=== PATIENT | female | born 1995 ===

== ENCOUNTER 2023-03-03 13:26 | Emergency (ER) | payer BC, SELFPAY ==
[2023-03-03 13:34] VITALS: BP 135/74; PULSE 88; RESP 18; TEMP 35.9; O2SAT 100; BMI 41.0
--- NOTE | 2023-03-03 14:56 | ED.DENTAL ---
HPI - Dental/Oral General Time Seen by Provider: 14:56 Date Seen: 03/03/23 Chief complaint: Dental/Oral/Mouth Injury/Pain Stated complaint: Tooth Pain Time Seen by Provider: 03/03/23 14:56 Source: patient and RN notes reviewed Mode of arrival: ambulatory Limitations: no limitations History of Present Illness HPI Narrative: Afua is a very pleasant 27-year-old female with recent dental evaluation who comes to the emergency room with increasing dental pain. Patient was noted to undergo dental work on MondayFebruary 28. She thinks she had 3 separate feelings. She notes that she has had increasing pain since that time especially along the left jaw edge and on both the upper and lower aspect of her teeth. She has not had fevers or chills but has been unable to sleep and this has resulted in almost delirious type state she states. She notes that she even has pain coming from the bottom part of her ear. She has not had any swelling of her face and she has not noticed any purulent drainage. She has not had a fever. She was supposed to follow up with the dental clinic today but they called to tell her that the dentist she was supposed to see was not available. She admits that she got very mad and was swearing at them and since that time they have not answered any of her phone calls. She has not had a recent cough cold or congestion. Teeth map: 1. 2. 3. Related Data Allergies Allergy/AdvReac Type Severity Reaction Status Date / Time amoxicillin Allergy Verified 03/03/23 13:33 Review of Systems Status of ROS: Reports: 6 or more systems reviewed and unremarkable except as noted in History and below Const: Reports: fatigue; Denies: fever or chills Eyes: Denies: change in vision ENMT: Reports: mouth pain; Denies: throat pain, neck pain, throat swelling, difficulty swallowing, ear pain or ear discharge Cardio: Denies: shortness of breath with exertion Resp: Denies: shortness of breath or cough GI: Denies: difficulty swallowing Musculo: Denies: neck pain Endo: Reports: fatigue Allergy/Immuno: Denies: throat swelling PFSH PFSH Social History Smoking Status: Current every day smoker What tobacco products do you use: cigarettes Smoking packs per day: 0.5 Smoking cigarettes per day: 10.0 Years smoked: 10 Smoking pack-years: 5.00 Do you use any of these nicotine containing products: None Second hand tobacco smoke exposure: No How often do you have a drink containing alcohol: monthly or less How many standard drinks containing alcohol do you have on a typical day: 1 or 2 How often do you have six or more drinks on one occasion: Never AUDIT-C Alcohol total score: 1 Non-prescribed substance use: denies use service: No Exam Narrative: Exam Narrative: Patient is alert and oriented. She is very talkative and nontoxic in appearance. Face is symmetrical without evidence of swelling. Left TM is bulging and erythematous. Ear canal itself appears to be within normal limits and there is no pain with external manipulation of the ear. Right TM is within normal limits. Rather challenging to see given the amount of cerumen noted. Patient has no evidence of gum swelling. She did have pain with percussion over the left upper eye tooth as well as bottom molars that are marked on previous Page. Mild erythema of the gum line on the lower jaw. Heart with regular rate and rhythm and lungs are clear. Const: Vital Signs, click to edit/add: Vital Signs - 24 hr 03/03/23 13:34 Temperature 96.7 F L Pulse Rate [Pulse Oximeter] 88 Respiratory Rate 18 Blood Pressure [Ri ght Upper Arm] 135/74 Pulse Oximetry 100 Oxygen Delivery Me thod Room Air Documenting provider has reviewed patient's vital signs: yes Course Course Hospital Course: At this time patient has a clear left otitis media but also has dental pain. I honestly think it most of her pain comes from her ear but cannot rule out underlying dental infection given recent instrumentation. Vital Signs Vital signs: Initial Vital Signs Temperature 96.7 F L 03/03/23 13:34 Temperature Source Temporal Artery Scan 03/03/23 13:34 Pulse Rate 88 03/03/23 13:34 Pulse Rhythm Regular 03/03/23 13:34 Respiratory Rate 18 03/03/23 13:34 Blood Pressure 135/74 03/03/23 13:34 Blood Pressure Mean 94 03/03/23 13:34 Blood Pressure Position Sitting 03/03/23 13:34 Pulse Oximetry 100 03/03/23 13:34 Oxygen Delivery Method Room Air 03/03/23 13:34 Vital Signs Temperature 96.7 F L 03/03/23 13:34 Pulse Rate 88 03/03/23 13:34 Respiratory Rate 18 03/03/23 13:34 Blood Pressure 135/74 03/03/23 13:34 Pulse Oximetry 100 03/03/23 13:34 Oxygen Delivery Method Room Air 03/03/23 13:34 Temperature 96.7 F L 03/03/23 13:34 Pulse Rate 88 03/03/23 13:34 Respiratory Rate 18 03/03/23 13:34 Blood Pressure 135/74 03/03/23 13:34 Pulse Oximetry 100 03/03/23 13:34 Oxygen Delivery Method Room Air 03/03/23 13:34 MDM - Dental/Oral MDM Narrative Medical decision making narrative: 1. Left otitis media 2. Dental pain with recent dental services 3. Disposition-patient will be discharged home. Will have her start on Augmentin 875 p.o. b.i.d. for the treatment of both left otitis media and potential dental infection. Patient notes no prior history of dental pain and no prior history of ear infections. She has a amoxicillin listed as an allergy and states that her mom told her to put that on her because she had allergies previously. She notes however she has had penicillin and amoxicillin since that time with no problems and agrees to try Augmentin today. For pain she has been using ibuprofen and Aleve. I have asked that she only pick 1 NSAID T use. She will use Aleve 1-2 tablets p.o. q.12 hours p.r.n. and push fluids with it. I will give her a 1 time allotment of Vicodin 5/325 1-2 tabs p.o. q.4-6 hours p.r.n. 12. [address] [employer]. I did state that no further narcotic medications would be distributed for this reason out of the emergency room and she is in agreement. 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 She has no history of narcotic addiction but of course she would be a risk. Her pain level however does seem elevated. In addition I did a check of the [employer] and her most recent what narcotic was 1 year ago. Patient is a tobacco user and I have advised her to stop smoking. She is advised to return to the emergency room for facial swelling, fever, worsening symptoms. I did talk to her about possibly seeing the dentist on Monday but apologizing to the de staff that she was swearing at and she is in agreement show this. Return as needed. Lab Data Attestation: I reviewed the patient's lab results. Discharge Plan Discharge Clinical Impression: Acute left otitis media, Toothache Patient Disposition: Home, Self-Care Condition: Unchanged Additional Instructions: For pain: Aleve 1-2 tablets every 12 hours. Do not supplement with further ibuprofen. For pain that is still severe you may use Vicodin in moderation. This will be prepared for you in our [facility] meds machine. We cannot give out narcotics in the future for this particular reason. I would recommend follow-up with dentistry for recheck. Augmentin is an antibiotic that will be used for both your dental pain and your ear infection. Take with food. Sometimes it can cause loose stools. Seek medical attention if you develop rash or allergic reaction. Return to the emergency room for fever, facial swelling and worsening symptoms. Stand Alone Forms: [facility]
== END 2023-03-03 15:39 | disposition home or self-care (01) ==
LOC: ED 15:28
PROVIDERS: Emergency Provider Family Medicine
DX: H66.92 Otitis media, unspecified, left ear (principal); K08.89 Other specified disorders of teeth and supporting structures
CPT/HCPCS: 99283

== ENCOUNTER 2023-09-01 18:57 | Emergency (ER) | payer BC, SELFPAY ==
[2023-09-01 19:10] VITALS: BP 119/81; PULSE 105; RESP 20; TEMP 36.8; O2SAT 100; BMI 41.6
--- NOTE | 2023-09-01 20:01 | ED.GENADULT ---
HPI - General Adult General Time Seen by Provider: 20:01 Date Seen: 09/01/23 Chief complaint: Fever Stated complaint: body pain, fever Time Seen by Provider: 09/01/23 20:00 Source: patient, RN notes reviewed and old records reviewed Mode of arrival: ambulatory Limitations: no limitations History of Present Illness HPI narrative: 27-year-old female who presents today with fever and body aches. Symptoms have been going on for 3 days, also complains of some throat pain and itching in her ears. Occasional cough. Both her children have upper respiratory infections currently. Denies chest pain, shortness of breath, nausea, vomiting, diarrhea, abdominal pain although she notes some redness on the right edge of her previous incision from several years ago. Took ibuprofen about 4 hours ago. Reports fever to 102.5 yesterday. Related Data Allergies Allergy/AdvReac Type Severity Reaction Status Date / Time amoxicillin Allergy Verified 03/03/23 13:33 PFSH PFSH Social History Smoking Status: Current every day smoker What tobacco products do you use: cigarettes Smoking packs per day: 0.5 Smoking cigarettes per day: 10.0 Years smoked: 10 Smoking pack-years: 5.00 Do you use any of these nicotine containing products: None Second hand tobacco smoke exposure: No How often do you have a drink containing alcohol: monthly or less How many standard drinks containing alcohol do you have on a typical day: 1 or 2 How often do you have six or more drinks on one occasion: Never AUDIT-C Alcohol total score: 1 Non-prescribed substance use: denies use service: No Exam Narrative: Exam Narrative: General: Well-developed and well-nourished, no acute distress Head: Atraumatic and normocephalic Eyes: Pupils are equal reactive, extraocular motions intact, conjunctiva clear ENT: External nose and ears are normal, posterior pharynx without erythema or exudate Neck: No midline cervical tenderness, full spontaneous range of motion the neck, trachea midline, no adenopathy Heart: Regular rate and rhythm no murmurs or thrills Lungs: Clear to auscultation bilaterally without wheezes or crackles Abdomen: Soft, nontender, nondistended with active bowel sounds Musculoskeletal: No tenderness, deformity, or edema Neurologic: Awake, alert, and oriented x3, no gross focal neurologic deficits, cranial nerves intact as tested Psych: Mood and affect are appropriate Skin: Pfannenstiel incision clean dry and intact, mild erythema on the right edge is with a yeastlike odor Const: Vital Signs, click to edit/add: Vital Signs - 24 hr 09/01/23 19:10 Temperature 98.3 F Pulse Rate [Pulse Oximeter] 105 H Respiratory Rate 20 Blood Pressure [Ri ght Upper Arm] 119/81 Pulse Oximetry 100 Oxygen Delivery Me thod Room Air Course Course ED Course: Patient seen examined, prior records are reviewed. Patient presents today with fever yesterday, body aches, some sore throat. Posterior oropharynx is without erythema or exudate, no tonsillar nor soft palate asymmetry to suggest peritonsillar abscess. Lungs are clear. Respiratory swab is pending. She does have a erythematous rash on the right edge of her incision, no induration or fluid collection, this appears most consistent with intertriginous yeast infection and will be treated with topical antifungals. Delaying care due to delaying respiratory swabs. Reevaluation(s) Time of Reevaluation #1: 20:52 Reevaluation #1: Labs ordered and independently interpreted by me with negative influenza, negative COVID, negative RSV. Chest x-ray ordered, this is negative patient be discharged with outpatient follow-up. Strep test ordered but patient declined. Clinically strep unlikely as there is no posterior pharyngeal exudate or erythema, no cervical adenopathy but patient does have main complaint sore throat and itching sensation in her ears. Time of Reevaluation #2: 21:17 Reevaluation #2: Chest x-ray to panel interpreted by me negative for acute findings. Patient is stable for discharge with outpatient follow-up. Vital Signs Vital signs: Initial Vital Signs Temperature 98.3 F 09/01/23 19:10 Temperature Source Temporal Artery Scan 09/01/23 19:10 Pulse Rate 105 H 09/01/23 19:10 Respiratory Rate 20 09/01/23 19:10 Blood Pressure 119/81 09/01/23 19:10 Blood Pressure Mean 93 09/01/23 19:10 Pulse Oximetry 100 09/01/23 19:10 Oxygen Delivery Method Room Air 09/01/23 19:10 Vital Signs Temperature 98.3 F 09/01/23 19:10 Pulse Rate 105 H 09/01/23 19:10 Respiratory Rate 20 09/01/23 19:10 Blood Pressure 119/81 09/01/23 19:10 Pulse Oximetry 100 09/01/23 19:10 Oxygen Delivery Method Room Air 09/01/23 19:10 Temperature 98.3 F 09/01/23 19:10 Pulse Rate 105 H 09/01/23 19:10 Respiratory Rate 20 09/01/23 19:10 Blood Pressure 119/81 09/01/23 19:10 Pulse Oximetry 100 09/01/23 19:10 Oxygen Delivery Method Room Air 09/01/23 19:10 Medical Decision Making Lab Data Labs: Lab Results 09/01/23 Range/Units 18:59 SARS-CoV-2 (PCR) Negative SARS-CoV-2 (Negative) Influenza Type A (PCR) Negative PCR FLU A (Negative) Influenza Type B (PCR) Negative PCR FLU B (Negative) RSV (PCR) Negative PCR RSV (Negative) Discharge Plan Discharge Clinical Impression: Pharyngitis Patient Disposition: Home, Self-Care Condition: Stable Instructions: Pharyngitis (ED), Upper Respiratory Infection (ED) Additional Instructions: Take Tylenol and ibuprofen as needed for pain or fever Return to the emergency department if you developed swelling in the throat or other concerns Activity Level: No Restrictions Discharge Diet: Regular Follow Up/Referrals: Provider,Not a Local [Primary Care Provider] - Stand Alone Forms: [facility] Info Instructions
[2023-09-01 20:14] VITALS: BP 121/78; PULSE 89; RESP 20; TEMP 36.8; O2SAT 100
[2023-09-01 20:46] LABS: PCR FLU A Negative PCR FLU A (Negative); PCR FLU B Negative PCR FLU B (Negative); PCR RSV Negative PCR RSV (Negative)
[2023-09-01 20:48] LABS: SARS PCR* Negative SARS-CoV-2 (Negative)
--- NOTE | 2023-09-01 20:51 | CRLHL7_ITS ---
For Patients: As a result of the Cures Act, medical imaging exams and procedure reports are released immediately into your electronic medical record. You may view this report before your referring provider. If you have questions, please contact your health care provider. INDICATION: FEVER CHEST, PA AND LATERAL Upright PA and lateral radiographs of the chest were performed. Comparison: No previous studies are currently available for comparison. The lungs appear clear and there are no pleural effusions. Heart size and pulmonary vasculature appear normal. Visualized bones show no significant findings. IMPRESSION: No acute intrathoracic abnormality identified. AVERY CHANCE MD [facility] Dictated by: Barry Chance MD @ 09/01/2023 22:12:01 (Electronically Signed)
[2023-09-01 21:25] VITALS: BP 119/81; PULSE 89; RESP 20; TEMP 36.8; O2SAT 100
[2023-09-01 21:27] VITALS: BP 119/81; PULSE 89; RESP 20; TEMP 36.8
== END 2023-09-01 21:30 | disposition home or self-care (01) ==
PROVIDERS: Emergency Provider Family Medicine
DX: J02.9 Acute pharyngitis, unspecified (principal)
CPT/HCPCS: 71046; 87631; 87651; 99283; 99284